=== PATIENT | female | born 1940 | race Caucasian/White ===

== ENCOUNTER 2021-01-14 15:39 | Emergency (ER) | payer OTHER, MEDICARE, BC ==
[2021-01-14 16:21] LABS: HEMOGLOBIN 13.4 gm/dl (12.3-15.3); RED BLOOD COUNT 4.2 M/UL (4.00-5.10); WHITE BLOOD COUNT 8.7 K/UL (4.5-11.0)
[2021-01-14 16:59] LABS: BUN/CREATININE RATIO 23 (0-10)
== END 2021-01-14 22:25 | disposition home or self-care (01) ==
LOC: ER1 15:39
PROVIDERS: Physician Assistant
DX: S13.4XXA Sprain of ligaments of cervical spine, initial encounter (principal); S30.1XXA Contusion of abdominal wall, initial encounter; S20.211A Contusion of right front wall of thorax, initial encounter; S60.511A Abrasion of right hand, initial encounter; I10 Essential (primary) hypertension; E78.5 Hyperlipidemia, unspecified; Z79.01 Long term (current) use of anticoagulants; Z88.5 Allergy status to narcotic agent; V49.40XA Driver injured in collision with unspecified motor vehicles in traffic accident, initial encounter
CPT/HCPCS: 71260; 72125; 73130; 80053; 82550; 82553; 83874; 84484; 85025; 93005; 99285; C9113; J7030; Q9967